=== PATIENT | female | born 1955 | race Caucasian/White ===

== ENCOUNTER 2016-12-19 13:32 | Emergency (ER) | payer OTHER ==
--- NOTE | 2016-12-19 14:32 | DIAGNOSTIC IMAGING REPORT ---
PROCEDURE: XR CHEST 2 VIEW INDICATION: CHEST PAIN TECHNIQUE: PA and lateral views. COMPARISON: None. FINDINGS: Lungs are clear. Heart and mediastinum are normal. Thorax is normal. IMPRESSION: 1. Negative chest.
--- NOTE | 2016-12-19 14:53 | ED NURSING NOTES ---
Clinical Report - Nurses [facility] [address] [place] [address] 12/19/2016 13:34 Patient: KORI CROWELL TRIAGE Triage time 13:47. Acuity: LEVEL 4. Chief Complaint: FATIGUE, HEADACHE and DIZZINESS. Alert. No acute distress. SEPSIS SCREEN: Sepsis Screen. Negative (no infection suspected/documented). LELIA COMA SCORE: [place] Coma Scale: 15- eyes open spontaneously (4); best verbal response- oriented x 4 (5); best motor response- obeys commands (6). --13:52 Miriam Whiting R.N. 13:47 12/19/16. BP: 109/84. HR: 75. RR: 16. O2 saturation: 100%. Temp: 98.7 F. Pain level now 0/10. --13:52 Miriam Whiting R.N. Weight: 61.2 kg stated. Height/Length: 62 inches Per Patient. BMI: 24.7. --13:50 Miriam Whiting R.N. Medications None. --13:52 Miriam Whiting R.N. Allergies No Known Drug Allergy. --13:52 Miriam Whiting R.N. History Arrived by private vehicle. Historian: patient. Accompanied by family. Primary physician ([facility]). Onset. (10 days ago). 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 PAST MEDICAL HX: Immunizations: status is unknown. SOCIAL HX: Heavy tobacco smoker (cigarette)- 1 pack per day. Occasional alcohol use. History of occasional drug use: marijuana. No infectious disease exposure. ABUSE ASSESSMENT: Abuse assessment: The patient was asked "Do you feel safe in your home?" and "Has anyone hurt you or threatened to hurt you?". No report of abuse. SELF HARM ASSESSMENT: A self harm assessment was performed. The patient answered "no" to the question "Do you have thoughts of harming or killing yourself?" and "Have you recently had thoughts about harming or killing others?". NUTRITIONAL RISK ASSESSMENT: The nutritional risk assessment revealed no deficiencies. FUNCTIONAL ASSESSMENT: Functional assessment: no impairments noted. LEARNING NEEDS ASSESSMENT: The learning needs assessment revealed no barriers. --13:52 Miriam Whiting R.N. PROBLEMS: Fall. Contusion. Lumbar Strain. Head Injury. Bronchospasm. Rotator Cuff Injury. Back Pain. --13:52 Miriam Whiting R.N. ADDITIONAL SURGERIES: Rt hand. --13:52 Miriam Whiting R.N. Interventions ID band on patient. Ambulatory. --13:52 Miriam Whiting R.N. PHYSICAL ASSESSMENT Ambulatory to room. GENERAL / NEURO / PSYCH: Alert. Appears in no acute distress. RESPIRATORY: Respirations not labored. CVS: Capillary refill less than 2 seconds. SKIN: Skin intact. Skin is warm and dry. --13:53 Miriam Whiting R.N. NURSING PROGRESS NOTES Patient gowned. Head of bed elevated. Two patient identifiers checked. Call light placed in reach. Side rails up x 2. Bed placed in lowest position. Brakes of bed on. Patient ready for evaluation- chart flagged. --13:53 Miriam Whiting R.N. Patient ID band checked for patient name, birthdate and medical record number: patient confirmed. Flu swab obtained by RN via nasal pharyngeal swab. Labeled in the presence of the patient and sent to lab. --14:05 Miriam Whiting R.N. Patient ID band checked for patient name, birthdate and medical record number: patient confirmed. Blood samples drawn from the right antecubital space with Vacutainer 23g by nurse per protocol ; labeled in presence of the patient and sent to lab: rainbow set. --14:06 Miriam Whiting R.N. DISPOSITION / DISCHARGE 15:00 12/19/16. RR: 16. Additional comments: re: d/c v/s pt. declined. Pt. in hallway waiting for her paperwork. --15:06 Miriam Whiting R.N. 15:00. Departure time: 1500. Condition at departure: stable. No learning barriers present. Discharge instructions provided and reviewed with the patient. Reviewed referral to family practice for followup. Patient verbalized understanding. Written instructions provided in Yi. The patient was discharged home and accompanied by family. She left the Emergency Department ambulatory and via private vehicle. Family member driving. Medication list reviewed and validated. --15:06 Miriam Whiting R.N. Locked/Released at 12/19/2016 15:07 by Miriam Whiting R.N.
--- NOTE | 2016-12-19 14:53 | ED NURSING NOTES ---
Clinical Report - Nurses [facility] [address] [place] [address] 12/19/2016 13:34 Patient: KORI CROWELL TRIAGE Triage time 13:47. Acuity: LEVEL 4. Chief Complaint: FATIGUE, HEADACHE and DIZZINESS. Alert. No acute distress. SEPSIS SCREEN: Sepsis Screen. Negative (no infection suspected/documented). LELIA COMA SCORE: [place] Coma Scale: 15- eyes open spontaneously (4); best verbal response- oriented x 4 (5); best motor response- obeys commands (6). --13:52 Miriam Whiting R.N. 13:47 12/19/16. BP: 109/84. HR: 75. RR: 16. O2 saturation: 100%. Temp: 98.7 F. Pain level now 0/10. --13:52 Miriam Whiting R.N. Weight: 61.2 kg stated. Height/Length: 62 inches Per Patient. BMI: 24.7. --13:50 Miriam Whiting R.N. Medications None. --13:52 Miriam Whiting R.N. Allergies No Known Drug Allergy. --13:52 Miriam Whiting R.N. History Arrived by private vehicle. Historian: patient. Accompanied by family. Primary physician ([facility]). Onset. (10 days ago). 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 PAST MEDICAL HX: Immunizations: status is unknown. SOCIAL HX: Heavy tobacco smoker (cigarette)- 1 pack per day. Occasional alcohol use. History of occasional drug use: marijuana. No infectious disease exposure. ABUSE ASSESSMENT: Abuse assessment: The patient was asked "Do you feel safe in your home?" and "Has anyone hurt you or threatened to hurt you?". No report of abuse. SELF HARM ASSESSMENT: A self harm assessment was performed. The patient answered "no" to the question "Do you have thoughts of harming or killing yourself?" and "Have you recently had thoughts about harming or killing others?". NUTRITIONAL RISK ASSESSMENT: The nutritional risk assessment revealed no deficiencies. FUNCTIONAL ASSESSMENT: Functional assessment: no impairments noted. LEARNING NEEDS ASSESSMENT: The learning needs assessment revealed no barriers. --13:52 Miriam Whiting R.N. PROBLEMS: Fall. Contusion. Lumbar Strain. Head Injury. Bronchospasm. Rotator Cuff Injury. Back Pain. --13:52 Miriam Whiting R.N. ADDITIONAL SURGERIES: Rt hand. --13:52 Miriam Whiting R.N. Interventions ID band on patient. Ambulatory. --13:52 Miriam Whiting R.N. PHYSICAL ASSESSMENT Ambulatory to room. GENERAL / NEURO / PSYCH: Alert. Appears in no acute distress. RESPIRATORY: Respirations not labored. CVS: Capillary refill less than 2 seconds. SKIN: Skin intact. Skin is warm and dry. --13:53 Miriam Whiting R.N. NURSING PROGRESS NOTES Patient gowned. Head of bed elevated. Two patient identifiers checked. Call light placed in reach. Side rails up x 2. Bed placed in lowest position. Brakes of bed on. Patient ready for evaluation- chart flagged. --13:53 Miriam Whiting R.N. Patient ID band checked for patient name, birthdate and medical record number: patient confirmed. Flu swab obtained by RN via nasal pharyngeal swab. Labeled in the presence of the patient and sent to lab. --14:05 Miriam Whiting R.N. Patient ID band checked for patient name, birthdate and medical record number: patient confirmed. Blood samples drawn from the right antecubital space with Vacutainer 23g by nurse per protocol ; labeled in presence of the patient and sent to lab: rainbow set. --14:06 Miriam Whiting R.N. DISPOSITION / DISCHARGE 15:00 12/19/16. RR: 16. Additional comments: re: d/c v/s pt. declined. Pt. in hallway waiting for her paperwork. --15:06 Miriam Whiting R.N. 15:00. Departure time: 1500. Condition at departure: stable. No learning barriers present. Discharge instructions provided and reviewed with the patient. Reviewed referral to family practice for followup. Patient verbalized understanding. Written instructions provided in Indonesian. The patient was discharged home and accompanied by family. She left the Emergency Department ambulatory and via private vehicle. Family member driving. Medication list reviewed and validated. --15:06 Miriam Whiting R.N. Locked/Released at 12/19/2016 15:07 by Miriam Whiting R.N.
--- NOTE | 2016-12-19 14:53 | ED CLINICAL REPORT ---
Clinical Report - Physicians/Mid Levels [facility] [address] [place] [address] 12/19/2016 13:34 Patient: KORI CROWELL Time Seen: 1350; initial patient contact, initial documentation, patient care assumed. Arrived- By private vehicle. Historian- patient. HISTORY OF PRESENT ILLNESS Chief Complaint: WEAKNESS. The patient has had new onset of generalized weakness. No numbness, tingling, impaired speech or swallowing or visual disturbance. No difficulty walking. This started about 10 days ago and is still present. (none). The patient has had dizziness. No altered mental status, seizure or blackouts. Usually is alert and oriented X3 and has normal mobility. Similar symptoms previously: None. Recent medical care: Not recently seen/assessed. REVIEW OF SYSTEMS No fever, head injury, chest pain, difficulty breathing or cough. No abdominal pain, diarrhea or vomiting. She has had a headache. All systems otherwise negative, except as recorded above. PAST HISTORY See nurses notes. ( PROBLEMS: Fall. Contusion. Lumbar Strain. Head Injury. Bronchospasm. Rotator Cuff Injury. Back Pain. --13:52 Miriam Whiting, R.N. ADDITIONAL SURGERIES: Rt hand. --13:52 Miriam Whiting RToshaN.). SOCIAL HISTORY Heavy tobacco smoker. Occasional alcohol use. History of occasional drug use: marijuana. No recent travel. Is a local resident. FAMILY HISTORY Negative. ADDITIONAL NOTES The nursing notes have been reviewed with agreement regarding the chief complaint, HPI, ROS, PMH and patient medications and allergies. PHYSICAL EXAM Vital Signs: 12/19/2016 13:47 BP: 109/84. HR: 75. RR: 16. O2 saturation: 100%. Temp: 98.7 F. Have been reviewed as normal and appear to be correct. Appearance: Alert. No acute distress. Head: Head atraumatic. Eyes: Pupils equal, round and reactive to light. ENT: Normal ENT inspection. Airway intact. Pharynx normal. Neck: Normal inspection. Neck supple. CVS: Normal heart rate and rhythm. Heart sounds normal. Pulses normal. Respiratory: No respiratory distress. Breath sounds abnormal. (B coarse). Back: Normal inspection. Skin: Skin warm and dry. Normal skin color. No rash. Normal skin turgor. Extremities: Extremities exhibit normal ROM. No lower extremity edema. Neuro: Alert. Oriented X 3. Mood/affect normal. Speech normal. Cranial nerves normal (as tested). No cerebellar findings. No motor deficit. No sensory deficit. LABS, X-RAYS, AND EKG Chest X-ray: Normal Chest X-Ray. (IMPRESSION: 1. Negative chest. Electronically Final signed by:Cezar Cabrera MD 12/19/2016 2:35:48 PM). The X-rays were interpreted by the radiologist and contemporaneously by me. Laboratory Tests: CBC w Diff: (LEW: 12/19/2016 14:00) ( MsgRcvd 12/19/2016 14:08) Final results Test Result Flag Units (Reference) WHITE BLOOD COUNT 7.6 K/uL (4.5-11.5) RED BLOOD COUNT 4.94 M/uL (4.00-5.20) HEMOGLOBIN 15.1 gm/dL (12.0-16.0) HEMATOCRIT 45.9 % (36.0-46.0) MEAN CELL VOLUME 93 fL (80-100) MEAN CORPUSCULAR HGB 31 pg (26-34) MEAN CORPUSCULAR HGB CONC 33 g/dL (31-37) RED CELL DISTRIBUTION WIDTH 12.8 % (11.6-14.8) PLATELET COUNT 199 K/uL (150-400) NEUTROPHIL % 54.1 % (50-75) LYMPH % 37.2 % (25-40) MONO % 5.1 % (3-14) EOSINOPHIL % 3.1 % (0-4) BASOPHIL % 0.5 % (0-2) CMP: (LEW: 12/19/2016 14:00) ( MsgRcvd 12/19/2016 14:40) Final results Test Result Flag Units (Reference) GLUCOSE 96 mg/dL (70-110) BUN 12 mg/dL (7-18) CREATININE 0.8 mg/dL (0.6-1.3) Estimated GFR >60 mL/min Estimated GFR- >60 mL/min Note: Persistent reduction over 3 months in eGFR<60 mL/min/1.73 m2 defines CKD. Patients with eGFR values>=60 mL/min/1.73 m2 may also have CKD if evidence ofpersistent proteinuria. Additional information may be foundat www.kidney.org. SODIUM 143 mmol/L (136-145) POTASSIUM 3.4 L mmol/L (3.5-5.1) CHLORIDE 108 H mmol/L (98-107) CARBON DIOXIDE 27 mmol/L (21-32) CALCIUM 9.0 mg/dL (8.5-10.1) TOTAL PROTEIN 6.8 g/dL (6.4-8.2) ALBUMIN 3.6 g/dL (3.3-5.0) BILIRUBIN, TOTAL 0.4 mg/dL (0.0-1.0) ALKALINE PHOSPHATASE 73 U/L (46-116) AST (SGOT) 32 U/L (15-37) ALT (SGPT) 55 U/L (12-78) THYROID STIMULATING HORMONE 2.334 uIU/mL (0.30-3.74) Rapid Influenza Screen: (LEW: 12/19/2016 14:00) ( MsgRcvd 12/19/2016 14:24) Final results SPECIMEN DESCRIPTION: NARE Test Result Flag Units (Reference) RAPID INFLUENZA SCREEN DATE: 12/19/16 INFLUENZA A: NEGATIVE SCREEN FOR INFLUENZA A INFLUENZA B: NEGATIVE SCREEN FOR INFLUENZA B . PROGRESS AND PROCEDURES Course of Care: 14:39 12/19/16. pt has brief latonya, nothing alarming, see report for full details. Patient counseled in person regarding the patient's stable condition, test results and diagnosis. 14:51. Differential Diagnosis: Other possible considerations: thyroid disease, viral illness, flu, anemia, dehydration. Above considerations are based on history, physical exam, laboratory data and X-Ray data. Differential diagnosis was discussed with patient. Disposition: Discharged home in good and unchanged condition (14:53). Condition: good and stable. CLINICAL IMPRESSION Acute generalized weakness. INSTRUCTIONS Warnings: GENERAL WARNINGS: Return or contact your physician immediately if your condition worsens or changes unexpectedly, if not improving as expected, or if other problems arise. Specifically return if problem worsens. Follow-up: Follow up with your doctor in about three days even if well. Call for an appointment. Summary of care provided to patient. Understanding of the discharge instructions verbalized by patient. (Electronically signed by Caitie Chicas A.R.N.P. 12/19/2016 16:57)
--- NOTE | 2016-12-19 14:53 | ED ORDER SUMMARY ---
..... Patient: KORI CROWELL OrderSheet [facility] VisitID: [id number] [address] [place] [address] 61y, F Registration Date/Time: 12/19/2016 ORDER SHEET Weight: 61.2 kg (stated) Allergies: No Known Drug Allergy GENERAL ORDERS: Rapid Influenza Screen (Nasal Pharyngeal) (nare) Urgent (13:59 12/19/2016 HBivens A.R.N.P.) (Ack 14:02 NHouse ER Tech1) (14:04 NHouse ER Tech1) Chest 2V Urgent (14:00 12/19/2016 HBivens A.R.N.P.) (Ack 14:02 NHouse ER Tech1) (14:41 NHouse ER Tech1) CBC w Diff Urgent (14:00 12/19/2016 HBivens A.R.N.P.) (Ack 14:02 NHouse ER Tech1) (14:04 NHouse ER Tech1) CMP Urgent (14:00 12/19/2016 HBivens A.R.N.P.) (Ack 14:02 NHouse ER Tech1) (14:04 NHouse ER Tech1) TSH Urgent (14:00 12/19/2016 HBivens A.R.N.P.) (Ack 14:02 NHouse ER Tech1) (14:04 NHouse ER Tech1) MEDICATION ORDERS: IV FLUIDS: ORDER SHEET NOTES: [Electronically signed by Miriam Whiting R.N. (15:07 12/19/2016)] [Electronically signed by Caitie Chicas A.R.N.P. (16:57 12/19/2016)] [Electronically locked/signed by Miriam Whiting R.N. (15:07 12/19/2016)]
--- NOTE | 2016-12-19 14:53 | ED ORDER SUMMARY ---
..... Patient: KORI CROWELL OrderSheet [facility] VisitID: [id number] [address] [place] [address] 61y, F Registration Date/Time: 12/19/2016 ORDER SHEET Weight: 61.2 kg (stated) Allergies: No Known Drug Allergy GENERAL ORDERS: Rapid Influenza Screen (Nasal Pharyngeal) (nare) Urgent (13:59 12/19/2016 HBivens A.R.N.P.) (Ack 14:02 NHouse ER Tech1) (14:04 NHouse ER Tech1) Chest 2V Urgent (14:00 12/19/2016 HBivens A.R.N.P.) (Ack 14:02 NHouse ER Tech1) (14:41 NHouse ER Tech1) CBC w Diff Urgent (14:00 12/19/2016 HBivens A.R.N.P.) (Ack 14:02 NHouse ER Tech1) (14:04 NHouse ER Tech1) CMP Urgent (14:00 12/19/2016 HBivens A.R.N.P.) (Ack 14:02 NHouse ER Tech1) (14:04 NHouse ER Tech1) TSH Urgent (14:00 12/19/2016 HBivens A.R.N.P.) (Ack 14:02 NHouse ER Tech1) (14:04 NHouse ER Tech1) MEDICATION ORDERS: IV FLUIDS: ORDER SHEET NOTES: [Electronically signed by Miriam Whiting R.N. (15:07 12/19/2016)] [Electronically signed by Caitie Chicas A.R.N.P. (16:57 12/19/2016)] [Electronically locked/signed by Miriam Whiting R.N. (15:07 12/19/2016)]
--- NOTE | 2016-12-19 16:58 | ED DISCHARGE INSTRUCTIONS ---
Patient: KORI CROWELL General Instructions [facility] VisitID: [id number] [address] [place] [address] 61y, F Registration Date/Time: 12/19/2016 Acute generalized weakness. INSTRUCTIONS Warnings: GENERAL WARNINGS: Return or contact your physician immediately if your condition worsens or changes unexpectedly, if not improving as expected, or if other problems arise. Specifically return if problem worsens. Follow-up: Follow up with your doctor in about three days even if well. Call for an appointment. Summary of care provided to patient. Understanding of the discharge instructions verbalized by patient. ADDITIONAL INFORMATION Weakness [Uncertain Cause] Based on your exam today, the exact cause of your weakness is not certain. However, your weakness does not seem to be a sign of a serious illness at this time. Sometimes the signs of a serious illness take more time to appear. Therefore, please watch for the warning signs listed below. Home Care: 1) Rest at home today. Do not over-exert yourself. 2) Take your medicine as prescribed. 3) For the next few days, drink extra fluids (unless your doctor wants you to restrict fluids for other reasons). Do not skip meals. Follow Up with your doctor or as advised if you are not starting to feel better within TWO days. Get Prompt Medical Attention if any of the following occur: Worsening of your symptoms Chest, arm, neck, jaw or upper back pain Dizziness or fainting Trouble breathing Unable to eat or drink normal amounts Nausea, frequent vomiting, frequent diarrhea Abdominal pain Numbness or weakness of the face, one arm or one leg Slurred speech, confusion, trouble speaking, walking or seeing Blood in vomit or stool (black or red color) Fever of 100.4 F (38 C) or higher, or as directed by your healthcare provider You have been given the following additional information: Weakness, Unk Cause (Electronically signed by Caitie Chicas A.R.N.P. 12/19/2016 16:57)
--- NOTE | 2016-12-19 16:58 | ED MAR SUMMARY ---
..... Medication Administration Record [facility] [address] [place], [place] [id number] Patient: KORI CROWELL Visit ID: [id number] 61y, F Weight: 61.2 kg Height/Length: 62 in BMI: 24.7 ALLERGIES: No Known Drug Allergy
--- NOTE | 2016-12-19 16:58 | ED MED RECONCILIATION SUMMARY ---
Patient: KORI CROWELL Medication Reconciliation Report [facility] VisitID: [id number] [address] [place] [address] 61y, F Registration Date/Time: 12/19/2016 Weight: 61.2 kg Height/Length: 62 in. BMI: 24.7 ALLERGIES: No Known Drug Allergy The patient's Home Medications are listed below: NONE. The source(s) of the original Home Medication information: Not obtained. The following Medications were given to the patient in the Emergency Department: None. The following Medications were prescribed to the patient: None.
--- NOTE | 2016-12-19 16:58 | ED MED RECONCILIATION SUMMARY ---
Patient: KORI CROWELL Medication Reconciliation Report [facility] VisitID: [id number] [address] [place] [address] 61y, F Registration Date/Time: 12/19/2016 Weight: 61.2 kg Height/Length: 62 in. BMI: 24.7 ALLERGIES: No Known Drug Allergy The patient's Home Medications are listed below: NONE. The source(s) of the original Home Medication information: Not obtained. The following Medications were given to the patient in the Emergency Department: None. The following Medications were prescribed to the patient: None.
--- NOTE | 2016-12-19 16:58 | ED DISCHARGE INSTRUCTIONS ---
Patient: KORI CROWELL General Instructions [facility] VisitID: [id number] [address] [place] [address] 61y, F Registration Date/Time: 12/19/2016 Acute generalized weakness. INSTRUCTIONS Warnings: GENERAL WARNINGS: Return or contact your physician immediately if your condition worsens or changes unexpectedly, if not improving as expected, or if other problems arise. Specifically return if problem worsens. Follow-up: Follow up with your doctor in about three days even if well. Call for an appointment. Summary of care provided to patient. Understanding of the discharge instructions verbalized by patient. ADDITIONAL INFORMATION Weakness [Uncertain Cause] Based on your exam today, the exact cause of your weakness is not certain. However, your weakness does not seem to be a sign of a serious illness at this time. Sometimes the signs of a serious illness take more time to appear. Therefore, please watch for the warning signs listed below. Home Care: 1) Rest at home today. Do not over-exert yourself. 2) Take your medicine as prescribed. 3) For the next few days, drink extra fluids (unless your doctor wants you to restrict fluids for other reasons). Do not skip meals. Follow Up with your doctor or as advised if you are not starting to feel better within TWO days. Get Prompt Medical Attention if any of the following occur: Worsening of your symptoms Chest, arm, neck, jaw or upper back pain Dizziness or fainting Trouble breathing Unable to eat or drink normal amounts Nausea, frequent vomiting, frequent diarrhea Abdominal pain Numbness or weakness of the face, one arm or one leg Slurred speech, confusion, trouble speaking, walking or seeing Blood in vomit or stool (black or red color) Fever of 100.4 F (38 C) or higher, or as directed by your healthcare provider You have been given the following additional information: Weakness, Unk Cause (Electronically signed by Caitie Chicas A.R.N.P. 12/19/2016 16:57)
--- NOTE | 2016-12-19 16:58 | ED MAR SUMMARY ---
..... Medication Administration Record [facility] [address] [place], [place] [id number] Patient: KORI CROWELL Visit ID: [id number] 61y, F Weight: 61.2 kg Height/Length: 62 in BMI: 24.7 ALLERGIES: No Known Drug Allergy
== END 2016-12-19 15:00 | disposition home or self-care (01) ==
LOC: ED SRH 13:32
DX: R53.1 Weakness (principal); F17.210 Nicotine dependence, cigarettes, uncomplicated; F12.10 Cannabis abuse, uncomplicated
CPT/HCPCS: 90100; 91400; 93140; 95059

== ENCOUNTER 2016-12-21 13:52 | Outpatient (CLI) | payer OTHER ==
--- NOTE | 2016-12-21 14:30 | DIAGNOSTIC IMAGING REPORT ---
PROCEDURE: XR SHOULDER 2 OR MORE VW-RIGHT INDICATION: R ANTERIOR SHOULDER PAIN TECHNIQUE: Three views. COMPARISON: None. FINDINGS: There is calcific tendonitis. No fracture or dislocation IMPRESSION: 1. Calcific tendonitis right shoulder.
--- NOTE | 2016-12-28 10:09 | DIAGNOSTIC IMAGING REPORT ---
PROCEDURE: MG BILATERAL SCREENING W/CAD INDICATION: Aunt with a history of breast cancer. TECHNIQUE: Bilateral CC and MLO digital views. COMPARISON: Mammograms from [facility] 02/10/2015, 02/26/2014 and 06/06/2013. FINDINGS: Computer-aided detection applied. Mildly dense pattern with decreasing nodularity, posterior right upper inner quadrant, likely a small intramammary lymph node. IMPRESSION: 1. Negative mammogram RESULT CODE: 1- Negative. A. A negative report should not delay biopsy if a dominant or clinically suspicious mass is present. 10-15% of cancers are not identified by x-ray. B. A negative report may reinforce clinical impression. C. Adenosis and dense breasts may obscure an underlying neoplasm. D. False positive reports average 6-10%. E.. A yearly screening mammogram is recommended. A reminder letter will be scheduled.
== END 2016-12-21 23:00 ==
LOC: MAM SRH 13:52
DX: M75.31 Calcific tendinitis of right shoulder (principal); Z12.31 Encounter for screening mammogram for malignant neoplasm of breast; Z80.3 Family history of malignant neoplasm of breast

== ENCOUNTER 2016-12-27 12:34 | Outpatient (CLI) | payer OTHER | END 2016-12-27 23:00 | LOC: LAB SRH 12:34 | DX: Z20.6 Contact with and (suspected) exposure to human immunodeficiency virus [HIV] (principal) | CPT/HCPCS: 90074; 90364; 92863; 95027 ==